=== PATIENT | female | born 1965 | race African-American/Black ===

== ENCOUNTER 2019-09-30 06:16 | Day surgery (SDC) | payer OTHER ==
[~2019-09-30] VITALS: Ht 180.3 cm; Wt 90.7 kg
--- NOTE | ~2019-09-30 | O ---
[facility] [place] [address] OPERATIVE REPORT Name: MAYUR JEFFERY Room #: 150-5 [facility] M..#: [id number] Admission: 09/30/19 Attend Phys: Jaison Michael MD Discharge: Date of : 69 Report #: [id number] THIS REPORT FOR: cc: [facility] - No family physician/PCP FAM - No family physician/PCP Jaison Michael MD ~ CC: [facility] physician/PCP Kaye Michael DATE OF SERVICE: 09/30/2019 PREOPERATIVE DIAGNOSIS: Pigmented conjunctival lesion of left eye. POSTOPERATIVE DIAGNOSIS: Pigmented conjunctival lesion of left eye. PROCEDURE: Excision of pigmented conjunctival lesion of the left eye with conjunctivoplasty repair of defect. SURGEON: Jaison Michael MD. HARDWARE MANAGER: None. ANESTHESIA: MAC. COMPLICATIONS: None. INDICATIONS FOR SURGERY: This pleasant 54-year-old -[place] woman presents with a history of a slowly enlarging pigmented mass in her left medial conjunctivae. She recalls the lesion initiating after trauma. Because of the concern for the lesion being frankly neoplastic, it is being removed today. Informed consent was obtained to include but not limited to the potential risk for loss of vision, bleeding, infection, and the potential need for further surgery or treatment, should the lesion bottom turning lathe tender to be melanoma. DESCRIPTION OF PROCEDURE: The patient was taken to the operating room where 2% Xylocaine with epinephrine mixed with equal parts of 0.75% Marcaine with Wydase was administered transcutaneously to the left lateral canthus to achieve the 7th nerve block. A larger additional aliquot of anesthetic was then administered transconjunctivally nasally. The patient was subsequently prepped and draped in the usual sterile fashion. The right eye was protected with a moist sponge during the surgery. The left upper lid was distracted superiorly in the lower lid distracted inferiorly to allow access to the lesion nasally. The incisions were then made 360 [address] [address] OPERATIVE REPORT Name: MAYUR JEFFERY Room #: 150-5 [facility]..#: [id number] Admission: 09/30/19 Attend Phys: Jaison Michael MD Discharge: Date of : 69 Report #: [id number] around the lesion with a Nelly scissor and drawn down to the substantia propria level. The lesion was excised in one piece with no pigmented tissue left in the area around it. The conjunctiva was then widely undermined to allow a conjunctival advancement to be accomplished. Hemostasis was then re-achieved. The conjunctivoplasty was then closed with interrupted 6-0 plain gut sutures with buried knots. The wounds were then cleaned and dressed with erythromycin ophthalmic ointment. The patient subsequently transported to the recovery area, having tolerated the procedure well with no anesthetic or operative complications being noted. By: 0803 1 Jaison Michael MD /nt
[~2019-09-30 06:16] MED LIST: KEPPRA XR500 MG PO; NORVASC10 MG PO; PROAIR HFA8.5 GM INH; VIREAD150 MG PO
[2019-09-30 07:43] LABS: ALBUMIN 3.4 g/dL (3.4-5.0); CALCIUM 8.8 mg/dL (8.5-10.1); CREATININE 1.3 mg/dL (0.6-1.0); TOTAL BILIRUBIN 0.6 mg/dL (<0.1-1.0); TOTAL PROTEIN 7.8 g/dL (6.4-8.2)
[2019-09-30 07:50] LABS: POTASSIUM 2.9 mmol/L (3.5-5.1)
[2019-09-30 09:49] VITALS: BP 108/59
--- NOTE | 2019-10-05 17:10 | PATH ---
[facility] [address] [place] [address] PATHOLOGY RPT PROCEDURE Name: CARLOTTA JEFFERY Room #: DEP [facility] M.R.#: [id number] Admission: 09/30/19 Date of : 69 Discharge: 09/30/19 Report #: [id number] Path Case #: [id number] [facility] Accession Number: [id number] . 01 Material submitted: . eye - LEFT EYE PIGMENTED CONJUNCTIVAL LESION. Modifiers: left . 01 Clinical history: . Pigmented lesion . 01 Frozen section diagnosis: . . /QLM . 02 Diagnosis: Eye, left eye pigmented conjunctival lesion, biopsy: - Subepithelial conjunctival nevus, benign. - Negative for malignancy. . (IUV:mml; 10/05/2019) QLM 10/05/2019 1233 Local . 02 Comment: Dr. Norah Portillo (board certified dermatopathologist) has seen this case and concurs with my diagnosis. . (IUV:mml; 10/05/2019) . 02 Electronically signed: . Letha Clements MD, Pathologist NPI- [id number] . 01 Gross description: . The specimen is received in formalin, labeled "Carlotta Jeffery, left eye pigmented conjunctival lesion". Received is a segment of light brown soft tissue measuring 0.5 cm in maximum dimensions. The specimen is submitted entirely in cassette A1. (CAA; 09/30/2019) QAC/QAC 09/30/2019 1710 Local . 02 Pathologist provided ICD-10: D31.02 . 02 CPT . 792170 Specimen Comment: A courtesy copy of this report has been sent to [phone] Specimen Comment: Report sent to [address] [address] PATHOLOGY RPT PROCEDURE Name: CARLOTTA JEFFERY Room #: DEP [facility] Nydia#: [id number] Admission: 09/30/19 Date of : 69 Discharge: 09/30/19 Report #: [id number] Path Case #: [id number] Performed at: 01 [facility] [address] [facility] [address], [place] [id number] MD Jordon Cam MD Phone: [phone] Performed at: [address] [id number] MD Letha Clements MD Phone: [phone]
== END 2019-09-30 08:47 | disposition home or self-care (01) ==
LOC: TBA 06:16 → OR 06:16 → TBA 06:19 → OR 07:34
PROVIDERS: Ophthalmology
DX: D31.02 Benign neoplasm of left conjunctiva (principal); I10 Essential (primary) hypertension; J45.909 Unspecified asthma, uncomplicated; B19.10 Unspecified viral hepatitis B without hepatic coma; Z98.890 Other specified postprocedural states; Z79.899 Other long term (current) drug therapy; Z90.710 Acquired absence of both cervix and uterus; Z86.2 Personal history of diseases of the blood and blood-forming organs and certain disorders involving the immune mechanism; Z88.0 Allergy status to penicillin; Z88.8 Allergy status to other drugs, medicaments and biological substances
CPT/HCPCS: 50010; 50101; 50386; 50398; 51636; 56531; 70005